=== PATIENT | male | born 1960 | race African-American/Black ===

== ENCOUNTER 2020-08-30 11:02 | Emergency (ER) | payer OTHER ==
[~2020-08-30] VITALS: Ht 172.7 cm; Wt 80.0 kg
[2020-08-30 11:04] VITALS: BP 180/101
== END 2020-08-30 12:30 | disposition left against medical advice (07) ==
LOC: ER 12:21
DX: R06.02 Shortness of breath (principal); Z53.21 Procedure and treatment not carried out due to patient leaving prior to being seen by health care provider